=== PATIENT | female | born 1940 | race Caucasian/White ===

== ENCOUNTER 2016-08-09 07:43 | Inpatient (IN) | payer MEDICARE, OTHER ==
[~2016-08-09] VITALS: Ht 154.9 cm; Wt 81.7 kg
[~2016-08-09 07:43] MED LIST: BUPIVACAINE/PF 0.5% ONE; THROMBIN 5,000 UNIT VIAL TP ONE
[2016-08-09] MEDS ORDERED: BACITRACIN 50,000 UNIT ONE (07:47)
[2016-08-09] MEDS ORDERED: FENTANYL PF 250 MCG/5ML ONE (09:14)
[2016-08-09] MEDS ORDERED: MIDAZOLAM 1 MG/ML, 2ML ONE (09:14)
[2016-08-09 09:15] VITALS: BP 91/60
[2016-08-09] MEDS ORDERED: LISI1TAB5 PO (09:38)
[2016-08-09] MEDS ORDERED: PRAM0.5T PO (09:38)
[2016-08-09] MEDS ORDERED: HYDR-3138 PO (09:38)
[2016-08-09] MEDS ORDERED: PRAZ2CAP2 PO (09:38)
[2016-08-09] MEDS ORDERED: VERA240C10 PO (09:38)
[2016-08-09] MEDS ORDERED: CYCL-259 PO (09:38)
[2016-08-09] MEDS ORDERED: LANS30CA PO (09:38)
[2016-08-09] MEDS ORDERED: LIDOCAINE 1%, 2ML ONE (09:43)
[2016-08-09] MEDS ORDERED: LACTATED RINGERS 1,000 ML IV SCH (10:28)
[2016-08-09] MEDS ORDERED: LIDOCAINE 1%, 2ML SQ PRN (10:30)
[2016-08-09] MEDS ORDERED: EPINEPHRINE 1 MG/ML, 1ML INFIL ONE (11:11)
[2016-08-09] MEDS ORDERED: ROCURONIUM 10 MG/ML ONE (11:35)
[2016-08-09] MEDS ORDERED: PROPOFOL 10 MG/ML, 20ML ONE (11:35)
[2016-08-09] MEDS ORDERED: ONDANSETRON 2MG/ML, 2ML ONE (11:35)
[2016-08-09] MEDS ORDERED: CEFAZOLIN 1,000 MG ONE (11:35)
[2016-08-09] MEDS ORDERED: DEXAMETHASONE 4 MG/ML, 1ML ONE (11:35)
[2016-08-09] MEDS ORDERED: FENTANYL PF 100 MCG/2ML IV PRN (12:30)
[2016-08-09] MEDS ORDERED: OXYcodone 5 MG/5 ML ORAL.SOL UDC PO PRN (12:30)
[2016-08-09] MEDS ORDERED: ACETAMINOPHEN 325 MG TABLET PO PRN (12:30)
[2016-08-09] MEDS ORDERED: hydrALAzine 20 MG/ML, 1ML IV PRN (12:30)
[2016-08-09] MEDS ORDERED: PROMETHAZINE 25 MG/ML, 1ML IV PRN (12:30)
[2016-08-09] MEDS ORDERED: ONDANSETRON 2MG/ML, 2ML IVPush PRN (12:30)
[2016-08-09] MEDS ORDERED: HYDROmorphone 1 MG/ML, 1ML IV PRN (12:30)
[2016-08-09] MEDS ORDERED: LABETALOL 5MG/ML, 20ML IV PRN ×2 (12:30→15:00)
[2016-08-09] MEDS ORDERED: FENTANYL PF 100 MCG/2ML ONE (12:39)
[2016-08-09] MEDS ORDERED: BUPIVACAINE/PF 0.25% EPIDPUSH ONE (12:44)
[2016-08-09] MEDS ORDERED: FENTANYL PF 100 MCG/2ML EPIDPUSH ONE (12:44)
[2016-08-09] MEDS ORDERED: ACETAMINOPHEN 650 MG/20.3 ML UDC ONE (13:31)
[2016-08-09] MEDS ORDERED: OXYcodone 5 MG/5 ML ORAL.SOL UDC ONE (13:31)
[2016-08-09] MEDS ORDERED: HYDROmorphone 1 MG/ML, 1ML ONE (13:43)
[2016-08-09] MEDS ORDERED: PROMETHAZINE 25 MG/ML, 1ML IM PRN (15:00)
[2016-08-09] MEDS ORDERED: DIPHENHYDRAMINE 50 MG CAPSULE PO PRN (15:00)
[2016-08-09] MEDS ORDERED: DIPHENHYDRAMINE 50 MG/ML, 1ML IVPush PRN (15:00)
[2016-08-09] MEDS ORDERED: morphine SULFATE 10 MG/ML, 1ML IV PRN (15:00)
[2016-08-09] MEDS ORDERED: MAGNESIUM HYDROXIDE 8%, 30ML UDC PO PRN (15:00)
[2016-08-09] MEDS ORDERED: BISACODYL 10 MG SUPP PR PRN (15:00)
[2016-08-09] MEDS ORDERED: OXYcodone/APAP 5/325MG TABLET PO PRN (15:00)
[2016-08-09] MEDS ORDERED: CYCLOBENZAPRINE 10 MG TABLET PO PRN (15:00)
[2016-08-09] MEDS: CEPHALEXIN 500 MG CAPSULE PO SCH ×2 (15:04→20:29)
[2016-08-09] MEDS: HYDROcodone/APAP 10/325 MG TABLET PO PRN ×2 (17:26→21:50)
[2016-08-09 19:50] VITALS: BP 104/57
[2016-08-09] MEDS: D5%-0.9% NACL+KCL 20MEQ 1,000 ML IV SCH (20:30)
[2016-08-09] MEDS: PRAMIPEXOLE 0.5MG TABLET PO SCH (20:31)
[2016-08-09] MEDS: PRAZOSIN 2 MG CAPSULE PO SCH (20:31)
[2016-08-09] MEDS: CEFAZOLIN PMX 1GM/50ML 50 ML IVPB SCH (20:31)
[2016-08-09] MEDS ORDERED: ZOLPIDEM 5MG TABLET PO PRN (21:00)
[2016-08-10] VITALS (7 sets, daily range): BP systolic 82–122; BP diastolic 44–64
[2016-08-10] MEDS: HYDROcodone/APAP 10/325 MG TABLET PO PRN ×4 (04:43→14:57)
[2016-08-10] MEDS: CEFAZOLIN PMX 1GM/50ML 50 ML IVPB SCH ×3 (05:20→20:32)
[2016-08-10] MEDS: CEPHALEXIN 500 MG CAPSULE PO SCH ×4 (05:23→21:00)
[2016-08-10] MEDS: D5%-0.9% NACL+KCL 20MEQ 1,000 ML IV SCH (06:59)
[2016-08-10] MEDS: ONDANSETRON 2MG/ML, 2ML IV PRN (09:37)
[2016-08-10] MEDS: PRAZOSIN 2 MG CAPSULE PO SCH ×2 (09:41→20:15)
[2016-08-10] MEDS: OMEPRAZOLE 20 MG CAPSULE.DR PO SCH (09:42)
[2016-08-10] MEDS: HYDROCHLOROTHIAZIDE 12.5 MG CAPSULE PO SCH (09:42)
[2016-08-10] MEDS: LISINOPRIL 20 MG TABLET PO SCH (09:42)
[2016-08-10] MEDS: VERAPAMIL ER 180MG TABLET.ER PO SCH (09:42)
[2016-08-10] MEDS: SENNA/DOCUSATE TABLET PO SCH (09:42)
[2016-08-10] MEDS ORDERED: LACTATED RINGERS 500 ML IVBOLUS ONE (20:00)
[2016-08-10] MEDS: PRAMIPEXOLE 0.5MG TABLET PO SCH (20:32)
[2016-08-10] MEDS: LACTATED RINGERS 1,000 ML IV SCH (20:32)
[2016-08-11 00:08] VITALS: BP 121/62
[2016-08-11] MEDS: ONDANSETRON 2MG/ML, 2ML IV PRN (00:14)
[2016-08-11] MEDS: D5%-0.9% NACL+KCL 20MEQ 1,000 ML IV SCH ×2 (02:30→12:09)
[2016-08-11] MEDS: HYDROcodone/APAP 10/325 MG TABLET PO PRN ×4 (04:26→21:15)
[2016-08-11] MEDS: LACTATED RINGERS 1,000 ML IV SCH ×3 (04:27→21:17)
[2016-08-11] MEDS: CEFAZOLIN PMX 1GM/50ML 50 ML IVPB SCH (04:29)
[2016-08-11] MEDS: CEPHALEXIN 500 MG CAPSULE PO SCH ×4 (05:51→21:14)
[2016-08-11 06:52] VITALS: BP 123/70
[2016-08-11] MEDS: SENNA/DOCUSATE TABLET PO SCH (08:46)
[2016-08-11] MEDS: HYDROCHLOROTHIAZIDE 12.5 MG CAPSULE PO SCH (08:47)
[2016-08-11] MEDS: LISINOPRIL 20 MG TABLET PO SCH (08:47)
[2016-08-11] MEDS: VERAPAMIL ER 180MG TABLET.ER PO SCH (08:47)
[2016-08-11] MEDS: PRAZOSIN 2 MG CAPSULE PO SCH ×2 (08:47→21:15)
[2016-08-11] MEDS: OMEPRAZOLE 20 MG CAPSULE.DR PO SCH (08:47)
[2016-08-11 14:00] VITALS: BP 116/68
[2016-08-11 18:22] VITALS: BP 108/62
[2016-08-11] MEDS: PRAMIPEXOLE 0.5MG TABLET PO SCH (21:15)
[2016-08-12 01:22] VITALS: BP 101/43
[2016-08-12] MEDS: D5%-0.9% NACL+KCL 20MEQ 1,000 ML IV SCH (04:20)
[2016-08-12] MEDS: CEPHALEXIN 500 MG CAPSULE PO SCH ×2 (06:26→10:37)
[2016-08-12] MEDS: HYDROcodone/APAP 10/325 MG TABLET PO PRN ×2 (06:26→12:11)
[2016-08-12 06:57] VITALS: BP 104/63
[2016-08-12] MEDS ORDERED: SCOPOLAMINE PATCH, 1.5MG PATCH.TD72 TD ONE (07:30)
[2016-08-12] MEDS: OMEPRAZOLE 20 MG CAPSULE.DR PO SCH (07:52)
[2016-08-12] MEDS: LISINOPRIL 20 MG TABLET PO SCH (07:52)
[2016-08-12] MEDS: HYDROCHLOROTHIAZIDE 12.5 MG CAPSULE PO SCH (07:52)
[2016-08-12] MEDS: LACTATED RINGERS 1,000 ML IV SCH (07:53)
[2016-08-12] MEDS: VERAPAMIL ER 180MG TABLET.ER PO SCH (07:53)
[2016-08-12] MEDS: SENNA/DOCUSATE TABLET PO SCH (07:53)
[2016-08-12] MEDS: PRAZOSIN 2 MG CAPSULE PO SCH (07:53)
[2016-08-12] MEDS ORDERED: CEPH-368 PO (10:58)
[2016-08-12] MEDS ORDERED: CYCL-259 PO (10:59)
[2016-08-12] MEDS ORDERED: HYDR-3307 PO (11:00)
[2016-08-12 11:28] VITALS: BP 104/60
== END 2016-08-12 11:40 | disposition home or self-care (01) | DRG 520 ==
LOC: OUT 07:43 → 4NOR 14:31 → OUT 14:35
PROVIDERS: ADMIT Neurological Surgery; ATTEND Neurological Surgery
PROC: 01NB0ZZ Release Lumbar Nerve, Open Approach (ICD-10-PCS; 2016-08-09)
PROC: 01NR0ZZ Release Sacral Nerve, Open Approach (ICD-10-PCS; 2016-08-09)
PROC: 00HU03Z Insertion of Infusion Device into Spinal Canal, Open Approach (ICD-10-PCS; 2016-08-09)
PROC: 0SB40ZZ Excision of Lumbosacral Disc, Open Approach (ICD-10-PCS; principal; 2016-08-09 11:30)
DX: M51.16 Intervertebral disc disorders with radiculopathy, lumbar region (principal); M51.37 Other intervertebral disc degeneration, lumbosacral region; Z88.6 Allergy status to analgesic agent; I95.9 Hypotension, unspecified; Z82.3 Family history of stroke; Z80.9 Family history of malignant neoplasm, unspecified; M48.07 Spinal stenosis, lumbosacral region
CPT/HCPCS: 72100; C1729; J0171; J0690; J1100; J1170; J2250; J2405; J2550; J2704; J3010; J3490; J7120; J2270; J3480

== ENCOUNTER 2018-07-18 08:12 | Inpatient (IN) | payer MEDICARE, OTHER ==
[~2018-07-18] VITALS: Ht 157.5 cm; Wt 75.8 kg
[~2018-07-18 08:12] MED LIST changes: +ALBU8.5H8 INH; +BACITRACIN 50,000 UNIT ONE; +BUPIVACAINE/EPI 0.5% 1:200K ONE; -BUPIVACAINE/PF 0.5% ONE; +CEPH-368 PO; +CETI10TA24 PO; +CYCL-259 PO; +DOCU100T6 PO; +HYDR-3237 PO; +HYDR-3307 PO; +LANS30CA PO; +LISI1TAB5 PO; +MAGNESIUM PO; +PRAM0.5T PO; +PRAZ2CAP2 PO; +VERA240C10 PO; +[UNRECOGNIZED DRUG - OTHER] PO; +[UNRECOGNIZED DRUG - OTHER] PO
[2018-07-18] MEDS ORDERED: ALBUTEROL/IPRATROPIUM 2.5MG/0.5MG, 3 ML NPPB PRN (09:30)
[2018-07-18] MEDS ORDERED: PROMETHAZINE 25 MG/ML, 1ML IV PRN (09:30)
[2018-07-18] MEDS ORDERED: LABETALOL 5MG/ML, 20ML IV PRN (09:30)
[2018-07-18] MEDS ORDERED: HALOPERIDOL 5 MG/ML IV PRN (09:30)
[2018-07-18] MEDS ORDERED: hydrALAzine 20 MG/ML, 1ML IV PRN (09:30)
[2018-07-18] MEDS ORDERED: DIPHENHYDRAMINE 50 MG/ML, 1ML IVPush PRN (09:30)
[2018-07-18] MEDS ORDERED: PROCHLORPERAZINE 5 MG/ML, 2ML IV PRN (09:30)
[2018-07-18] MEDS ORDERED: OXYcodone 5 MG/5 ML ORAL.SOL UDC PO PRN (09:30)
[2018-07-18] MEDS ORDERED: MEPERIDINE/PF 25MG/0.5ML IVPush PRN (09:30)
[2018-07-18] MEDS ORDERED: METOPROLOL 1 MG/ML, 5ML IV PRN (09:30)
[2018-07-18] MEDS ORDERED: MIDAZOLAM 1 MG/ML, 2ML ONE (09:31)
[2018-07-18] MEDS ORDERED: FENTANYL PF 250 MCG/5ML ONE ×2 (09:31→11:28)
[2018-07-18] MEDS ORDERED: LACTATED RINGERS 1,000 ML IV SCH (09:54)
[2018-07-18] MEDS ORDERED: GABAPENTIN 300 MG CAPSULE PO ONE (10:00)
[2018-07-18] MEDS ORDERED: ACETAMINOPHEN 500 MG TABLET PO ONE (10:00)
[2018-07-18] MEDS ORDERED: PROPOFOL 50 ML ONE ×2 (10:20→11:33)
[2018-07-18] MEDS ORDERED: ROCURONIUM 10MG/ML,5ML ONE (11:58)
[2018-07-18] MEDS ORDERED: CEFAZOLIN 1,000 MG ONE (11:58)
[2018-07-18] MEDS ORDERED: NEOSTIGMINE 1 MG/ML, 10ML ONE (11:58)
[2018-07-18] MEDS ORDERED: GLYCOPYRROLATE 0.2MG/1ML, 5ML ONE (11:58)
[2018-07-18] MEDS ORDERED: PROPOFOL 10 MG/ML, 20ML ONE (11:58)
[2018-07-18] MEDS ORDERED: ONDANSETRON 2MG/ML, 2ML ONE (11:58)
[2018-07-18] MEDS ORDERED: DEXAMETHASONE 4 MG/ML, 1ML ONE ×2 (11:58→12:50)
[2018-07-18] MEDS ORDERED: SUCCINYLCHOLINE 20 MG/ML, 10ML ONE (11:58)
[2018-07-18] MEDS ORDERED: HYDROcodone/APAP 5/325 TABLET PO PRN (12:30)
[2018-07-18] MEDS ORDERED: PROMETHAZINE 25 MG/ML, 1ML IM PRN (12:30)
[2018-07-18] MEDS ORDERED: HYDROcodone/APAP 10/325 MG TABLET PO PRN (12:30)
[2018-07-18] MEDS ORDERED: BISACODYL 10 MG SUPP PR PRN (12:30)
[2018-07-18] MEDS ORDERED: PHARMACY MAY ADJ FOR RENAL FX MC PRN (12:30)
[2018-07-18] MEDS ORDERED: ONDANSETRON 2MG/ML, 2ML IVPush PRN (12:30)
[2018-07-18] MEDS ORDERED: DIPHENHYDRAMINE 50 MG CAPSULE PO PRN (12:30)
[2018-07-18] MEDS ORDERED: SENNA/DOCUSATE TABLET PO PRN (12:30)
[2018-07-18] MEDS ORDERED: CETIRIZINE 10 MG TABLET PO SCH (12:30)
[2018-07-18] MEDS ORDERED: morphine SULFATE 10 MG/ML, 1ML IVPush PRN (12:30)
[2018-07-18] MEDS ORDERED: FENTANYL PF 100 MCG/2ML ONE (12:36)
[2018-07-18] MEDS ORDERED: OXYcodone 5 MG/5 ML ORAL.SOL UDC ONE (12:37)
[2018-07-18] MEDS: FENTANYL PF 100 MCG/2ML IV PRN ×2 (12:42→12:54)
[2018-07-18] MEDS ORDERED: HYDROmorphone 2 MG/ML, 1ML ONE (12:45)
[2018-07-18] MEDS: HYDROmorphone 2 MG/ML, 1ML IVPush PRN ×3 (12:51→13:14)
[2018-07-18 13:50] VITALS: BP 120/46
[2018-07-18] MEDS ORDERED: Albuterol Sulfate (Proair Hfa) INH PRN (14:30)
[2018-07-18] MEDS: D5%-0.9% NACL+KCL 20MEQ 1,000 ML IV SCH (15:15)
[2018-07-18] MEDS: CYCLOBENZAPRINE 10 MG TABLET PO SCH ×2 (16:00→22:10)
[2018-07-18] MEDS: CEFAZOLIN PMX 1GM/50ML 50 ML IVPB SCH (17:57)
[2018-07-18 19:00] VITALS: BP 125/60
[2018-07-18] MEDS: PRAMIPEXOLE 0.5MG TABLET PO SCH (22:10)
[2018-07-18] MEDS: PRAZOSIN 2 MG CAPSULE PO SCH (22:10)
[2018-07-18] MEDS: OXYcodone/APAP 5/325MG TABLET PO PRN (22:10)
[2018-07-18] MEDS: SODIUM CHLORIDE FLUSH 10ML SYR IVF SCH (22:11)
[2018-07-19 00:17] VITALS: BP 120/62
[2018-07-19] MEDS: CEFAZOLIN PMX 1GM/50ML 50 ML IVPB SCH (02:42)
[2018-07-19 04:18] VITALS: BP 115/67
[2018-07-19] MEDS: OXYcodone/APAP 5/325MG TABLET PO PRN ×3 (05:36→21:30)
[2018-07-19] MEDS: D5%-0.9% NACL+KCL 20MEQ 1,000 ML IV SCH ×2 (05:37→16:08)
[2018-07-19 08:17] VITALS: BP 130/50
[2018-07-19] MEDS: VERAPAMIL ER 180MG TABLET.ER PO SCH (08:39)
[2018-07-19] MEDS: PANTOPROZOLE 40MG TABLET PO SCH (08:39)
[2018-07-19] MEDS: HYDROCHLOROTHIAZIDE 25 MG TABLET PO SCH (08:40)
[2018-07-19] MEDS: DOCUSATE 100 MG CAPSULE PO SCH (08:40)
[2018-07-19] MEDS: LISINOPRIL 20 MG TABLET PO SCH (08:40)
[2018-07-19] MEDS: CYCLOBENZAPRINE 10 MG TABLET PO SCH ×3 (08:40→21:29)
[2018-07-19] MEDS: PRAZOSIN 2 MG CAPSULE PO SCH ×2 (08:40→21:29)
[2018-07-19] MEDS: SODIUM CHLORIDE FLUSH 10ML SYR IVF SCH ×2 (08:42→21:30)
[2018-07-19 15:47] VITALS: BP 109/54
[2018-07-19 19:07] VITALS: BP 118/62
[2018-07-19] MEDS: PRAMIPEXOLE 0.5MG TABLET PO SCH (21:29)
[2018-07-20 00:21] VITALS: BP 124/62
[2018-07-20] MEDS: D5%-0.9% NACL+KCL 20MEQ 1,000 ML IV SCH ×2 (04:50→13:12)
[2018-07-20] MEDS ORDERED: ONDANSETRON 2MG/ML, 2ML ONE (06:39)
[2018-07-20] MEDS ORDERED: SUCCINYLCHOLINE 20 MG/ML, 10ML ONE (06:39)
[2018-07-20] MEDS ORDERED: DEXAMETHASONE 4 MG/ML, 1ML ONE ×2 (06:39)
[2018-07-20] MEDS ORDERED: MIDAZOLAM 1 MG/ML, 2ML ONE (06:39)
[2018-07-20] MEDS ORDERED: FENTANYL PF 250 MCG/5ML ONE (06:39)
[2018-07-20] MEDS ORDERED: ROCURONIUM 10MG/ML,5ML ONE (06:39)
[2018-07-20] MEDS ORDERED: CEFAZOLIN 1,000 MG ONE ×2 (06:39)
[2018-07-20] MEDS ORDERED: LIDOCAINE-MPF 2% ,5ML ONE (06:39)
[2018-07-20] MEDS ORDERED: PROPOFOL 50 ML ONE ×3 (06:40→09:42)
[2018-07-20] MEDS ORDERED: FENTANYL PF 100 MCG/2ML IV PRN (08:30)
[2018-07-20] MEDS ORDERED: ONDANSETRON 2MG/ML, 2ML IV PRN (08:30)
[2018-07-20] MEDS ORDERED: LORazepam 2 MG/ML, 1ML IVPush PRN (08:30)
[2018-07-20] MEDS ORDERED: METOCLOPRAMIDE 5 MG/ML, 2ML IV PRN (08:30)
[2018-07-20] MEDS ORDERED: hydrALAzine 20 MG/ML, 1ML IV PRN (08:30)
[2018-07-20] MEDS ORDERED: OXYcodone 5 MG/5 ML ORAL.SOL UDC PO PRN (08:30)
[2018-07-20] MEDS ORDERED: HYDROmorphone 2 MG/ML, 1ML IVPush PRN (08:30)
[2018-07-20] MEDS ORDERED: LABETALOL 5MG/ML, 20ML IV PRN ×2 (08:30→12:00)
[2018-07-20] MEDS ORDERED: METOPROLOL 1 MG/ML, 5ML IV PRN (08:30)
[2018-07-20] MEDS ORDERED: THROMBIN 5,000 UNIT VIAL TP ONE ×2 (08:59→10:33)
[2018-07-20] MEDS: PRAZOSIN 2 MG CAPSULE PO SCH ×2 (09:00→20:44)
[2018-07-20] MEDS ORDERED: BUPIVACAINE 0.25% ONE (10:33)
[2018-07-20] MEDS ORDERED: VANCOMYCIN 1,000 MG ONE (10:33)
[2018-07-20] MEDS ORDERED: BUPIVACAINE/PF 0.5% ONE (10:33)
[2018-07-20] MEDS ORDERED: EPINEPHRINE 1 MG/ML, 1ML ONE (10:34)
[2018-07-20] MEDS ORDERED: BACITRACIN 50,000 UNIT ONE (10:34)
[2018-07-20] MEDS ORDERED: OXYcodone 5 MG/5 ML ORAL.SOL UDC ONE (10:49)
[2018-07-20] MEDS ORDERED: OXYcodone/APAP 5/325MG TABLET PO PRN (12:00)
[2018-07-20] MEDS ORDERED: DOXYCYCLINE 100MG TABLET PO PRN (12:00)
[2018-07-20] MEDS ORDERED: BISACODYL 10 MG SUPP PR PRN (12:00)
[2018-07-20] MEDS ORDERED: PROMETHAZINE 25 MG/ML, 1ML IM PRN (12:00)
[2018-07-20] MEDS ORDERED: morphine SULFATE 10 MG/ML, 1ML IV PRN (12:00)
[2018-07-20] MEDS: VERAPAMIL ER 180MG TABLET.ER PO SCH (12:16)
[2018-07-20] MEDS: PANTOPROZOLE 40MG TABLET PO SCH (12:16)
[2018-07-20] MEDS: HYDROCHLOROTHIAZIDE 25 MG TABLET PO SCH (12:16)
[2018-07-20] MEDS: DOCUSATE 100 MG CAPSULE PO SCH (12:16)
[2018-07-20] MEDS: LISINOPRIL 20 MG TABLET PO SCH (12:16)
[2018-07-20] MEDS: CYCLOBENZAPRINE 10 MG TABLET PO SCH ×3 (12:17→20:44)
[2018-07-20] MEDS: SODIUM CHLORIDE FLUSH 10ML SYR IVF SCH ×2 (12:18→20:45)
[2018-07-20 13:01] VITALS: BP 119/54
[2018-07-20] MEDS: CEFAZOLIN PMX 1GM/50ML 50 ML IVPB SCH (16:04)
[2018-07-20 20:01] VITALS: BP 106/64
[2018-07-20] MEDS: METHOCARBAMOL 750 MG TABLET PO PRN (20:09)
[2018-07-20] MEDS: PRAMIPEXOLE 0.5MG TABLET PO SCH (20:44)
[2018-07-20] MEDS ORDERED: ZOLPIDEM 5MG TABLET PO PRN (21:00)
[2018-07-20] MEDS: HYDROcodone/APAP 10/325 MG TABLET PO PRN (22:23)
[2018-07-21] VITALS (8 sets, daily range): BP systolic 86–141; BP diastolic 47–65
[2018-07-21] MEDS: CEFAZOLIN PMX 1GM/50ML 50 ML IVPB SCH ×3 (00:42→18:08)
[2018-07-21] MEDS: D5%-0.9% NACL+KCL 20MEQ 1,000 ML IV SCH ×2 (01:30→14:26)
[2018-07-21] MEDS: HYDROcodone/APAP 10/325 MG TABLET PO PRN ×4 (04:11→22:31)
[2018-07-21] MEDS: METHOCARBAMOL 750 MG TABLET PO PRN (04:11)
[2018-07-21] MEDS ORDERED: ENOXAPARIN 40 MG/0.4 ML SQ SCH (06:00)
[2018-07-21] MEDS: MAGNESIUM HYDROXIDE 8%, 30ML UDC PO PRN (06:00)
[2018-07-21] MEDS ORDERED: METHOCARBAMOL 750 MG TABLET PO PRN (08:30)
[2018-07-21] MEDS: HYDROCHLOROTHIAZIDE 25 MG TABLET PO SCH (08:51)
[2018-07-21] MEDS: SENNA/DOCUSATE TABLET PO SCH (08:52)
[2018-07-21] MEDS: PANTOPROZOLE 40MG TABLET PO SCH (08:52)
[2018-07-21] MEDS: VERAPAMIL ER 180MG TABLET.ER PO SCH (08:52)
[2018-07-21] MEDS: DOCUSATE 100 MG CAPSULE PO SCH (08:52)
[2018-07-21] MEDS: POLYETHYLENE GLYCOL 17 GM PACKET PO SCH (08:53)
[2018-07-21] MEDS: SODIUM CHLORIDE FLUSH 10ML SYR IVF SCH ×2 (08:56→21:00)
[2018-07-21] MEDS: LISINOPRIL 20 MG TABLET PO SCH (10:26)
[2018-07-21] MEDS: PRAZOSIN 2 MG CAPSULE PO SCH ×2 (10:26→21:00)
[2018-07-21] MEDS ORDERED: PRAMIPEXOLE 0.5MG TABLET PO SCH (18:00)
[2018-07-21] MEDS ORDERED: CYCLOBENZAPRINE 10 MG TABLET PO SCH (18:00)
[2018-07-22] MEDS: CEFAZOLIN PMX 1GM/50ML 50 ML IVPB SCH ×3 (00:30→17:02)
[2018-07-22 01:43] VITALS: BP 95/62
[2018-07-22] MEDS: HYDROcodone/APAP 10/325 MG TABLET PO PRN ×2 (05:20→13:30)
[2018-07-22] MEDS: D5%-0.9% NACL+KCL 20MEQ 1,000 ML IV SCH ×2 (05:41→14:10)
[2018-07-22] MEDS: PANTOPROZOLE 40MG TABLET PO SCH (08:26)
[2018-07-22] MEDS: MAGNESIUM HYDROXIDE 8%, 30ML UDC PO PRN (08:26)
[2018-07-22] MEDS: POLYETHYLENE GLYCOL 17 GM PACKET PO SCH (08:26)
[2018-07-22] MEDS: HYDROCHLOROTHIAZIDE 25 MG TABLET PO SCH (08:26)
[2018-07-22] MEDS: DOCUSATE 100 MG CAPSULE PO SCH (08:26)
[2018-07-22] MEDS: SENNA/DOCUSATE TABLET PO SCH (08:27)
[2018-07-22 09:06] VITALS: BP 100/50
[2018-07-22] MEDS: SODIUM CHLORIDE FLUSH 10ML SYR IVF SCH (09:57)
[2018-07-22 14:19] VITALS: BP 124/56
[2018-07-22] MEDS ORDERED: ENOX40SY4 SQ (17:20)
[2018-07-22] MEDS ORDERED: DOCU-131 PO (17:21)
[2018-07-22] MEDS ORDERED: HYDR12.517 PO (17:22)
[2018-07-22] MEDS ORDERED: PANT40TA5 PO (17:23)
[2018-07-22] MEDS ORDERED: POLY17PO5 PO (17:24)
[2018-07-22] MEDS ORDERED: SENN-177 PO (17:25)
[2018-07-22] MEDS ORDERED: ALPR0.254 PO (17:27)
[2018-07-22] MEDS ORDERED: DIPH25CA61 PO (17:28)
[2018-07-22] MEDS ORDERED: DOXY100C PO (17:30)
[2018-07-22] MEDS ORDERED: HYDR-3307 PO (17:31)
[2018-07-22] MEDS ORDERED: [UNRECOGNIZED DRUG - CODE] IV (17:35)
[2018-07-22] MEDS ORDERED: METH750T2 PO (17:35)
[2018-07-22] MEDS ORDERED: ONDA4DIS4 IV (17:37)
[2018-07-22] MEDS ORDERED: OXYC-302 PO (17:38)
[2018-07-22] MEDS ORDERED: ZOLP5TAB6 PO (17:39)
[2018-07-22] MEDS ORDERED: MORP2CAR IV (17:41)
[2018-07-22] MEDS ORDERED: PRAZOSIN 2 MG CAPSULE PO SCH (21:00)
[2018-07-23] MEDS ORDERED: VERAPAMIL ER 180MG TABLET.ER PO SCH (09:00)
[2018-07-23] MEDS ORDERED: LISINOPRIL 20 MG TABLET PO SCH (09:00)
== END 2018-07-22 17:58 | DRG 454 ==
LOC: ORIP 08:12 → 4NOR 13:40
PROVIDERS: ADMIT Neurological Surgery; ATTEND Neurological Surgery
PROC: 0SG00A0 Fusion of Lumbar Vertebral Joint with Interbody Fusion Device, Anterior Approach, Anterior Column, Open Approach (ICD-10-PCS; 2018-07-18)
PROC: 4A11X4G Monitoring of Peripheral Nervous Electrical Activity, Intraoperative, External Approach (ICD-10-PCS; 2018-07-18)
PROC: 0SG3071 Fusion of Lumbosacral Joint with Autologous Tissue Substitute, Posterior Approach, Posterior Column, Open Approach (ICD-10-PCS; 2018-07-20)
PROC: 0SG0071 Fusion of Lumbar Vertebral Joint with Autologous Tissue Substitute, Posterior Approach, Posterior Column, Open Approach (ICD-10-PCS; 2018-07-20)
PROC: 0SB40ZZ Excision of Lumbosacral Disc, Open Approach (ICD-10-PCS; 2018-07-20)
PROC: 01NR0ZZ Release Sacral Nerve, Open Approach (ICD-10-PCS; 2018-07-20)
PROC: 01NB0ZZ Release Lumbar Nerve, Open Approach (ICD-10-PCS; 2018-07-20)
PROC: 00NY0ZZ Release Lumbar Spinal Cord, Open Approach (ICD-10-PCS; 2018-07-20)
PROC: 4A11X4G Monitoring of Peripheral Nervous Electrical Activity, Intraoperative, External Approach (ICD-10-PCS; 2018-07-20)
PROC: 0SG30AJ Fusion of Lumbosacral Joint with Interbody Fusion Device, Posterior Approach, Anterior Column, Open Approach (ICD-10-PCS; principal; 2018-07-20 07:00)
DX: M48.062 Spinal stenosis, lumbar region with neurogenic claudication (principal); G95.29 Other cord compression; M43.16 Spondylolisthesis, lumbar region; E66.9 Obesity, unspecified; G25.81 Restless legs syndrome; M51.17 Intervertebral disc disorders with radiculopathy, lumbosacral region; M53.3 Sacrococcygeal disorders, not elsewhere classified; K21.9 Gastro-esophageal reflux disease without esophagitis; J44.9 Chronic obstructive pulmonary disease, unspecified; G89.29 Other chronic pain; I10 Essential (primary) hypertension; Z68.30 Body mass index [BMI] 30.0-30.9, adult; Z88.5 Allergy status to narcotic agent
CPT/HCPCS: 72100; 72131; 82962; C1713; C1776; G0378; J0171; J0690; J1100; J1170; J1650; J2250; J2405; J2704; J2710; J3010; J3370; J3490; C1751; C1760; C1763; C1769; C9352; J0330; J2270; J3480; J7120